=== PATIENT | female | born 1940 | race Caucasian/White ===

== ENCOUNTER 2018-04-16 06:29 | Day surgery (SDC) | payer MEDICARE, OTHER, SELFPAY ==
[2018-04-16] VITALS (9 sets, daily range): BP systolic 72–130; BP diastolic 47–76; PULSE 59–83; RESP 16–18; TEMP 35.7–36.4; O2SAT 92–96; BMI 35.6
--- NOTE | 2018-04-16 | IMM_PTH ---
PATIENT: KANE SIGALA LOC: EN U#:[id number] AGE/SX: 77/F ROOM: RE04/16/[address]: Dr. Robb Trimble MD : 1940 BED: DIS: 04/16/2018 SPEC #: [id number] RECD: 04/17/18 11:46 STATUS: DERECK RETerese #: [id number] MONIQUE: 04/16/18 00:[address]: Robb Trimble DEPT: IMMUNOHISTOCHEMISTRY RECD BY: Jenny Vaz ENTERED: 04/17/18 11:46 SP TYPE: IMMUNO OTHR DR: Dr. Oliverio Spencer MD Tissues: A - Gastric mucous membrane B - POLYP Procedures: H Pylori (initial) PHYSICIAN & INSTITUTION [place] [address] SPECIMEN INFORMATION: Tissue Source: A. Biopsy gastric antrum, B. Gastric polyp Clinical Info: Hem positive stool Specimen Number: [id number] A, B CPT code: 99057o1 METHODOLOGY: Deparaffinized sections of prefer/formalin-fixed tissue or PAP/DQ stained slides are incubated with monoclonal/polyclonal antibodies/oligonucleotide probes. Localization is made via biotin free immunoperoxidase method. Appropriate controls are performed and reacted as expected. Results on target cell population are indicated in the following table: RESULTS: ANTIBODY / CLONE RESULT Block A H Pylori (polyclonal) negative Block B H Pylori (polyclonal) negative These tests were developed and their performance characteristics determined by [facility]. They may not have been cleared or approved by the U.S. Food and Drug Administration. The FDA has determined that such clearance or approval is not necessary. INTERPRETATION: A. Biopsy gastric antrum: Negative for Helicobacter pylori organisms. B. Gastric polyp: Negative for Helicobacter pylori organisms. SJ:arabella 04/18/18
--- NOTE | 2018-04-16 08:19 | EGD_PTH ---
PATIENT: KANE SIGALA LOC: EN U#:[id number] AGE/SX: 77/F ROOM: RE04/16/[address]: Dr. Robb Trimble MD : 1940 BED: DIS: 04/16/2018 SPEC #: [id number] RECD: 04/16/18 09:35 STATUS: DERECK DUNG #: [id number] MONIQUE: 04/16/18 08:[address]: Robb Trimble DEPT: SURGICAL PATHOLOGY RECD BY: Monroe Gonsalez ENTERED: 04/16/18 11:07 SP TYPE: EGD BIOPSY CHICHO DR: Dr. Oliverio Spencer MD Tissues: A - Gastric mucous membrane B - Gastric mucous membrane C - Esophageal mucous membrane Procedures: Surgery Specimen Level IV HEADER OPERATION: EGD with biopsy PRE-OP DIAGNOSIS: Heme positive stool TISSUE SUBMITTED: A. Biopsy gastric antrum, B. Gastric polyp, C. Distal esophagus biopsy MICROSCOPIC DIAGNOSIS A. Gastric antrum, biopsy: Mild gastritis. B. Gastric polyp, biopsy: Mild gastritis. C. Distal esophagus, biopsy Fragments of squamous epithelium with mild chronic inflammation. SJ:silvia 04/17/18 COMMENT A. The results of immunohistochemistry for Helicobacter pylori will be reported separately ([id number]) B. The results of immunohistochemistry for Helicobacter pylori will be reported separately ([id number]) MICROSCOPIC DESCRIPTION Slides are reviewed. A. The specimen shows fragments of gastric mucosa with chronic inflammatory cell infiltrates in the lamina propria consisting of lymphocytes and plasma cells, consistent with mild chronic gastritis. B. The specimen shows fragments of gastric mucosa with chronic inflammatory cell infiltrates in the lamina propria consisting of lymphocytes and plasma cells, consistent with mild chronic gastritis. Obvious changes consistent with polyp are not seen. GROSS DESCRIPTION A. Received in fixative is one container labeled with the patient's name and designated gastric antrum. The specimen consists of one fragment of tissue measuring 0.5 x 0.3 x 0.2. The specimen is totally submitted in one cassette. B. Received in fixative is one container labeled with the patient's name and designated gastric polyp. The specimen consists of one fragment of tissue measuring 0.5 x 0.2 x 0.2. The specimen is totally submitted in one cassette. C. Received in fixative is one container labeled with the patient's name and designated distal esophagus. The specimen consists of multiple minute fragments of tissue measuring in aggregate 0.5 x 0.2 x 0.1. The specimen is totally submitted in one cassette. RY:silvia 04/15/18 TC: 3 CPT: 01372 x3
--- NOTE | 2018-04-16 08:56 | OP.PCM_ITS ---
Problem List (1) Guaiac + stool Status: Acute Report of Operation Date of Procedure: 04/16/18 Pre-Operative Diagnosis: Hemoccult positive stool Post-Operative Diagnosis: Large hiatal hernia. Mild antral gastritis. Multiple gastric polyps. Severe sigmoid and descending diverticulosis. Elongated lax colon. Grade 2 internal hemorrhoids Surgery/Procedure Performed:: Esophagogastroduodenoscopy with biopsies. Colonoscopy Description of Surgical Findings:: Timeout and informed consent was obtained. 77-year-old female was taken to the endoscopy suite. Her oral ulcers anesthetized with Topex. She was placed in a left lateral decubitus position. Throughout both the upper and lower endoscopy she received a total of 100 mg Demerol and 4 mg of Versed is intravenous sedation. Upper gastric was inserted into the esophageal inlet. Proximal mid esophagus not remarkable. A moderately large 6 cm hiatal hernia encountered. Widely patent the EG junction. Scope was advanced in the stomach and multiple too numerous to count gastric polyps were identified. There is mild antral erythema. The scope was advanced through the pylorus versus the second portion of the duodenum were inspected this was not remarkable. The scope was withdrawn back into the stomach antral biopsy was obtained. The scope was retroflexed there were multiple polyps noted. A moderately large hiatal hernia noted photographs obtained. This appeared to be a sliding hernia. 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 There was no evidence of any active bleeding. Excess fluid and air was aspirated free. The procedure scope was withdrawn to the distal esophagus. Distal esophageal biopsy was obtained. Excess fluid and air was aspirated free the procedure was completed with the patient tolerating it well. The patient was kept in a left lateral decubitus position. Digital rectal exam performed. Grade 2 to grade 3 internal hemorrhoids though without active bleeding. The scope was inserted and immediately extensive sigmoid diverticulosis with extraordinarily tortuous sigmoid was encountered. The scope was tediously and slowly advanced through the sigmoid and descending colon into the transverse colon. The patient was then placed supine. The scope was advanced to the ascending colon. Patient was then again placed in the lateral decubitus position and the scope was advanced. The cecum and ileocecal valve area could be inspected. I cannot absolutely help the scope within the cecum but I felt that I had good visualization. Bowel prep was adequate there was still some liquid and solid stool scattered throughout the colon. The ascending colon was now well inspected. The scope was carefully withdrawn from the ascending transverse descending and sigmoid colon. Scattered minimal pancolonic diverticulosis was identified with extensive diverticular disease of the descending and sigmoid colon. I did not see any mass lesions. Possibly a slight amount of edema of the sigmoid but very minimal. Excess fluid and air was aspirated free after the rectum was carefully inspected and the procedure was completed. Impression Hiatal hernia. Antral gastritis. Multiple gastric polyps. Likely source of Hemoccult positive stool. Extraordinarily long lax colon. Extensive sigmoid and descending diverticulosis. Grade 2 to grade 3 internal hemorrhoids. Previous colonoscopy was April 2012. Next screening colonoscopy recommended in 10 years The patient will be notified of pathology results as they become available. I will await H. pylori. The patient is already on omeprazole therapy. CC: Dr. Oliverio Spencer Medications were given at 0814. The upper scope started 0816. That procedure was completed at 0821. The lower endoscopy was started at 0825. The cecum was reached at 0841. The procedure was completed at 0847. Robb Trimble M.D., F.A.C.S. Type of Anesthesia:: IV Sedation
== END 2018-04-16 10:17 | disposition home or self-care (01) ==
LOC: EN 06:32 → AC 06:33
PROVIDERS: Family Provider Family Medicine; PCP Family Medicine; Visit Provider Surgery
PROC: 0DJD8ZZ Inspection of Lower Intestinal Tract, Via Natural or Artificial Opening Endoscopic (ICD-10-PCS; CPT 45378; principal; 2018-04-16 07:55)
DX: K44.9 Diaphragmatic hernia without obstruction or gangrene (principal); K29.50 Unspecified chronic gastritis without bleeding; K31.7 Polyp of stomach and duodenum; K57.90 Diverticulosis of intestine, part unspecified, without perforation or abscess without bleeding; K64.8 Other hemorrhoids; Q43.8 Other specified congenital malformations of intestine; Z79.82 Long term (current) use of aspirin; I10 Essential (primary) hypertension; F32.9 Major depressive disorder, single episode, unspecified; F41.9 Anxiety disorder, unspecified
CPT/HCPCS: 43239; 45378; 88305; 88342; 99152; 99153; J7120

== ENCOUNTER → 2018-05-02 14:22 | Outpatient (CLI) | payer MEDICARE, OTHER, SELFPAY ==
--- NOTE | 2018-05-02 | LES_PTH ---
PATIENT: KANE SIGALA LOC: MARY U#:[id number] AGE/SX: 85/F ROOM: RE05/02/[address]: Dr. Sergio Reynolds MD : 1940 BED: DIS: SPEC #: [id number] RECD: 05/02/18 14:22 STATUS: DERECK DUNG #: [id number] MONIQUE: 05/02/18 00:[address]: Sergio Reynolds DEPT: SURGICAL PATHOLOGY RECD BY: Devan Romero ENTERED: 05/03/18 08:52 SP TYPE: Lesion OTHR DR: Dr. Oliverio Spencer MD Tissues: Skin of eyelid, NOS Procedures: Surgery Specimen Level IV HEADER OPERATION: Excision left eyelid lesion PRE-OP DIAGNOSIS: Possible papilloma TISSUE SUBMITTED: Left lower eyelid lesion MICROSCOPIC DIAGNOSIS Left lower eyelid lesion, biopsy: Fragment of skin with focal hyperkeratosis and minimal perivascular dermal chronic inflammation. No evidence of malignancy. AM:cherelle 05/07/18 COMMENT Case has been reviewed in consultation with Dr. Bernal who concurs with the above diagnosis. IDC:MATT MICROSCOPIC DESCRIPTION Slides are reviewed. GROSS DESCRIPTION Received in fixative is one container labeled with the patient's name and designated left lower lid. The specimen consists of a piece of guthrie soft tissue measuring 0.3 x 0.2 x 0.1 cm. The specimen is totally submitted in one cassette. / MATT:cherelle 05/03/18 TC:5 CPT: 61412
== END ==
PROVIDERS: Family Provider Family Medicine; PCP Family Medicine; Visit Provider Ophthalmology
DX: H02.9 Unspecified disorder of eyelid (principal)
CPT/HCPCS: 88305

== ENCOUNTER → 2019-03-29 10:39 | Outpatient (CLI) | payer MEDICARE, OTHER, SELFPAY ==
--- NOTE | 2019-03-29 | BRBX_PTH ---
PATIENT: KANE SIGALA LOC: [facility] U#:[id number] AGE/SX: 85/F ROOM: RE03/29/[address]: Dr. Robb Trimble MD : 1940 BED: DIS: SPEC #: [id number] RECD: 03/29/19 10:35 STATUS: DERECK DUNG #: [id number] MONIQUE: 03/29/19 00:[address]: Robb Trimble DEPT: SURGICAL PATHOLOGY RECD BY: Devan Romero ENTERED: 03/31/19 08:47 SP TYPE: BREAST BX OTHR DR: Dr. 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 See comment. MATT:cherelle 04/01/19 COMMENT Immunohistochemistry ([id number]) supports the above diagnosis. ER/AZ/Tsv0cuo studies are being performed on sections of tumor and the results from this study will be reported separately ([id number]). 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 Case has been reviewed in consultation with Dr. Severino who concurs with the above diagnosis. IDC:AM MICROSCOPIC DESCRIPTION Slides are reviewed. GROSS DESCRIPTION Received in fixative is one container labeled with the patient's name and designated left breast. The specimen consists of multiple elongated fragments of guthrie-yellow fibroadipose tissue that in aggregate measure 2 x 0.3 x 0.1 cm. The entire specimen is submitted in one cassette. / MATT:cherelle 03/31/19 TC:0 CPT: 11159
--- NOTE | 2019-03-29 | IMM_PTH ---
PATIENT: KANE SIGALA LOC: LAB U#:[id number] AGE/SX: 85/F ROOM: RE03/29/[address]: Dr. Robb Trimble MD : 1940 BED: DIS: SPEC #: [id number] RECD: 04/01/19 11:15 STATUS: DERECK REQ #: [id number] MONIQUE: 03/29/19 00:[address]: Robb Trimbel DEPT: IMMUNOHISTOCHEMISTRY RECD BY: Danielle Montiel ENTERED: 04/01/19 11:16 SP TYPE: IMMUNO OTHR DR: Dr. Oliverio Spencer MD Tissues: Left breast, NOS Procedures: CALPONIN-1 (add) CK5-6 (add) CK8 (add) E-CAD (add) HER2 TSERING (add) KI-67 (add) P53 (add) DE (add) IN SITU HYBRIDIZATION P40 (add) ER (initial) PHYSICIAN & INSTITUTION [address] [address] SPECIMEN INFORMATION: Tissue Source: Left breast, biopsy Clinical Info: Abnormal breast ultrasound Specimen Number: [id number] CPT code: 62091, 16611 x6, 72481 x3 METHODOLOGY: Deparaffinized sections of prefer/formalin-fixed tissue or PAP/DQ stained slides are incubated with monoclonal/polyclonal antibodies/oligonucleotide probes. Localization is made via biotin free immunoperoxidase method. Appropriate controls are performed and reacted as expected. Results on target cell population are indicated in the following table: RESULTS: ANTIBODY / CLONE RESULT E-Cad (ECH-6) positive, focal * CK8 (21uphpG69) positive CK5-6 (D5 & 1684) negative Ki-67 (30-9) positive, moderate P53 (DO-7) positive, rare cells, weak P40 (BC28) negative (high background staining) Calponin-1 (YF685W) negative MORPHOMETRIC ANALYSIS ER (clone 6F11) >95%, strong DE (clone 16/1E2) variable, 0 to >95% Her-2Neu (clone CB11) 1-2+ *?Invasive lobular carcinoma area is negative ?Invasive ductal carcinoma area is up to 95% positive, invasive lobular carcinoma area is 0% The prognostic test for HER2 is performed on formalin-fixed paraffin embedded tissue. A 3+ (positive) staining pattern is defined as intense, homogeneous, complete, circumferential membranous staining in >10% of contiguous tumor cells. A similar weak (2+) staining pattern is interpreted as equivocal. PRICILLA follow-up testing is recommended for all equivocal cases. Positivity/negativity for ER/DE is reported if > or < 1% of the tumor cells are immuno- reactive, respectively. The ASCO/CAP criteria is used for scoring. Reference: Journal of Clinical Oncology, 2013; 31:7983-5355 & 2010; 16:5613-6891. Duration of fixation: 34.5 Hrs; Sample Adequate: Yes. These assays have not been validated on decalcified tissues. Results should be interpreted with caution given the likelihood of false negativity on decalcified specimens. These tests were developed and their performance characteristics determined by [facility]. They may not have been cleared or approved by the U.S. Food and Drug Administration. The FDA has determined that such clearance or approval is not necessary. 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 Positive for estrogen receptors (favorable prognostic indicator). Positive for progesterone receptors (favorable prognostic indicator). [place] also see results above. Equivocal for overexpression of OYU6pem. This case has been reviewed in consultation with Dr. Severino who concurs with the above diagnosis. SJ:cherelle 04/02/19 ADDENDUM ADDENDUM ADDENDUM ADDENDUM ADDENDUM ADDENDUM ADDENDUM ADDENDUM ADDENDUM ADDENDUM ADDENDUM ADDENDUM ADDENDUM ADDENDUM ADDENDUM ADDENDUM ADDENDUM ADDENDUM ADDENDUM ADDENDUM ADDENDUM ADDENDUM ADDENDUM 04/03/2019 11:00 ADDENDUM 04/03/2019 11:00 ADDENDUM 04/03/2019 11:00 ADDENDUM 04/03/2019 11:00 ADDENDUM 04/03/2019 11:00 IN SITU HYBRIDIZATION (PRICILLA) FOR HER2 Interpretation: Negative / Not Amplified HER2 : CEP-17 Ratio: 1.1 Average HER2 Signal: 2.15 Average CEP-17 Signal: 1.9 Number of Tumor Cells Scanned: 50 Interpretative Information: The INFORM HER2 Dual PRICILLA DNA Probe Cocktail assay is performed on formalin-fixed paraffin embedded tissue and determines HER2 gene status by detecting HER2 copies via silver in situ hybridization (SISH) and Chromosome 17 copies via chromogenic red in situ hybridization on tumor cells. A minimum of 20 cells representing > 10% of contiguous and homogeneous invasive tumor cells were analyzed. HER2 gene status is classified as Non-amplified (HER2/Chr17 ratio < 2.0) or Amplified (HER2/Chr17 ratio greater than or equal to 2.0). If the resulting HER2/Chr17 ratio falls within 1.8 - 2.2 (Borderline), retesting by FISH is recommended. Reference: Praveen AC, Clarissa SEYMOUR, Jaziel MURRY, et al: Recommendations for Human Epidermal Growth Factor Receptor 2 Testing in Breast Cancer: [place] [employer] On[employer] / [employer] [place] [employer] Clinical Practice Guideline Update. J Clin Oncol 31:5908-0209, 2013. SJ:cherelle 04/03/19
[2019-03-29 09:09] VITALS: BMI 35.9
== END ==
PROVIDERS: Family Provider Family Medicine; PCP Family Medicine; Referring Provider Surgery; Visit Provider Surgery
DX: C50.912 Malignant neoplasm of unspecified site of left female breast (principal)
CPT/HCPCS: 88305; 88341; 88342; 88368

== ENCOUNTER → 2019-04-25 09:52 | Outpatient (CLI) | payer MEDICARE, OTHER, SELFPAY ==
[2019-04-07 12:26] VITALS: BMI 37.9
[2019-04-17 09:59] VITALS: BMI 37.9
--- NOTE | 2019-04-26 07:02 | PFT ---
INTRODUCTION: The patient is a 79-year-old female that presents for pulmonary function studies secondary to a diagnosis of dyspnea. Respiratory therapy reports good patient effort. Bronchodilators were used during testing. INTERPRETATION: Forced expiration spirometry demonstrates the presence of a moderate large airways obstructive ventilatory defect. There was no significant response to aerosolized bronchodilators. Spirograms are of good quality and do not plateau indicating slow emptying of the lungs. Body plethysmography was performed and reveals lung volumes to be within normal limits. Diffusing capacity by single breath CO is reduced at 53% of predicted. IMPRESSION: Irreversible moderate large airways obstructive ventilatory defect with symmetric reduction in diffusing capacity.
== END ==
PROVIDERS: Family Provider Family Medicine; PCP Family Medicine; Referring Provider Internal Medicine Critical Care Medicine; Visit Provider Internal Medicine Critical Care Medicine
DX: R06.09 Other forms of dyspnea (principal)
CPT/HCPCS: 94060; 94726; 94729

== ENCOUNTER 2019-05-15 14:45 | Observation (INO) | payer MEDICARE, OTHER, SELFPAY ==
[2019-03-29 09:09] VITALS: BMI 35.9
[2019-04-17 09:59] VITALS: BMI 37.9
--- NOTE | 2019-04-17 10:32 | HP_ITS ---
Intake Vital Signs 04/17/19 Body Mass Index (BMI) 37.9 Intake Visit Reasons: f/u L breast bx 03/29/19 Chief Complaint: abn mammo, hx breast CA International Tax Manager Required: No Is patient in pain?: No Allergies No Known Allergies Allergy (Verified 04/17/19 09:59) Medications Aspirin E.C. [Ecotrin] 81 mg PO DAILY@0800 01/25/17 [History Confirmed 04/17/19] Cholecalciferol (Vitamin D3) [Vitamin D3] 2,000 unit PO DAILY 01/25/17 [History Confirmed 04/17/19] Metoprolol Tartrate [Lopressor (Beta Yuli)] 25 mg PO DAILY 01/25/17 [History Confirmed 04/17/19] Multivit-Min/Iron/Folic/Lutein [Centrum Silver Women Tablet] 1 ea PO DAILY 01/25/17 [History Confirmed 04/17/19] Venlafaxine XR [Effexor Xr] 75 mg PO DAILY 01/25/17 [History Confirmed 04/17/19] lansoprazole 30 mg capsule,delayed release 30 mg PO DAILY 03/29/19 [History Confirmed 04/17/19] doxycycline monohydrate 100 mg tablet PO 10 Days #20 tab 04/07/19 [History Confirmed 04/17/19] prednisone 20 mg tablet 20 mg PO 5 Days tab 04/07/19 [History Confirmed 04/17/19] [facility] Medical History Abnormal mammogram of left breast (Acute) Guaiac + stool (Acute) Asthma (Acute) Bladder cancer (Acute) CAD (coronary artery disease) (Acute) Depression (Acute) GERD (gastroesophageal reflux disease) (Acute) Hemorrhoids (Acute) History of breast cancer (Acute ~1996) Hypercholesteremia (Acute) Myocardial infarction (Acute) Osteoarthritis (Acute) Status post amputation of finger (Acute) HTN (hypertension) (Chronic) Surgical History S/P angioplasty (Acute) S/P colonoscopy (Acute) S/P hemorrhoidectomy (Acute) Status post left breast lumpectomy (Acute ~1996) Family History Mother Breast cancer CAD (coronary artery disease) Hypertension Diabetes Heart disease Father Hypertension Social History (Updated 04/17/19 @ 10:32 by Robb Trimble MD) Smoking Status: Former smoker Tobacco: How many years used: 42 how long ago did patient quit smokin HPI HPI HPI: KANE SIGALA, is a 79 F who presents to the office today for HPI HPI Surgical H&P: Yes HPI: KANE SIGALA, is a 79 F who presents to the office today for ongoing surgical consultation regarding left breast cancer. In my absence the patient has been seen in consultation by Dr. Chip Nathan. The 1.3 x 0.8 x 0.6 cm irregular left breast density at 3:00 +4 cm noted. The pathology demonstrated invasive carcinoma with ductal and lobular features. Nuclear grade 2. Estrogen receptors greater than 95%. Progesterone receptor variable at 0 to 95%. HER- 2/kristin was 1-2+. 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 She is no longer a candidate for additional radiation treatment to the left breast. On the patient's initial consultation evaluation and left breast biopsy that I performed for her on March 29, 2019 she immediately made comment that she wanted to proceed with therapeutic mastectomy on the left and prophylactic mastectomy on the right. She had been a long-term cigarette smoker. At my request she has been seen by Dr. Matt Ca. He is anticipating pulmonary function test be done on April 26, 2019. Tentatively her definitive surgery is scheduled for April 29, 2019. The patient presents with her daughter Evelia today for further discussion. MR#:[id number]:[id number] Name: KANE SIGALA #:[id number] : 1940 Provider:Robb Trimble MD Age/Sex: 78/F Location:[facility] Status:Signed Intake Vital Signs 03/29/19 Height 5 ft 2 in 03/29/19 Weight: 196 lb 2 oz 03/29/19 Body Mass Index (BMI) 35.9 03/29/19 Blood Pressure 151/98 H 03/29/19 Blood Pressure Location Rt brachial 03/29/19 Blood Pressure Position Sitting 03/29/19 Respiratory Rate 20 H 03/29/19 Pulse Rate 96 03/29/19 Pulse Ox 96 Intake Visit Reasons: hx breast CA, new spot Chief Complaint: abn mammo, hx breast CA International Tax Manager Required: No Is patient in pain?: No Allergies No Known Allergies Allergy (Verified 03/29/19 08:58) Medications Aspirin E.C. [Ecotrin] 81 mg PO DAILY@0800 01/25/17 [History Confirmed 03/29/19] Cholecalciferol (Vitamin D3) [Vitamin D3] 2,000 unit PO DAILY 01/25/17 [History Confirmed 03/29/19] Metoprolol Tartrate [Lopressor (Beta Yuli)] 25 mg PO DAILY 01/25/17 [History Confirmed 03/29/19] Multivit-Min/Iron/Folic/Lutein [Centrum Silver Women Tablet] 1 ea PO DAILY 01/25/17 [History Confirmed 03/29/19] Venlafaxine XR [Effexor Xr] 75 mg PO DAILY 01/25/17 [History Confirmed 03/29/19] lansoprazole 30 mg capsule,delayed release 30 mg PO DAILY 03/29/19 [History Confirmed 03/29/19] Is last menstrual period known: No Post menopausal: Yes Patient : No PFSH Medical History Guaiac + stool (Acute) Asthma (Acute) Bladder cancer (Acute) CAD (coronary artery disease) (Acute) Depression (Acute) GERD (gastroesophageal reflux disease) (Acute) Hemorrhoids (Acute) History of breast cancer (Acute ~1996) Hypercholesteremia (Acute) Myocardial infarction (Acute) Osteoarthritis (Acute) Status post amputation of finger (Acute) HTN (hypertension) (Chronic) Surgical History S/P angioplasty (Acute) S/P colonoscopy (Acute) S/P hemorrhoidectomy (Acute) Status post left breast lumpectomy (Acute ~1996) Family History Mother Breast cancer CAD (coronary artery disease) Hypertension Diabetes Heart disease Father Hypertension Social History Smoking Status: Former smoker HPI HPI HPI: KANE SIGALA, is a 78 F who presents to the office today for surgical consultation regarding an abnormal mammogram. The patient is referred by her primary care physician Dr. Oliverio Spencer and a written copy of my surgical consult and recommendations will be returned to him. 78-year-old female. A0. Menarche at age 13. First child was born when she was 24. She did not breast-feed. In 1996 I assisted her with a medial left breast lumpectomy for DCIS. She did get post intervention radiation treatment. She was not prescribed hormonal agent. Her family history is notable for her mother having developed invasive breast cancer when she was in her late 70s. The patient has not been on any estrogen medication. The patient has been a long-term cigarette smoker. She finally quit but has problems with chronic bronchitis and likely COPD. She has not been seen by a clerical assigner. She does become dyspneic on exertion had and has trouble going up a flight of stairs. Additionally she notes that 1996 she had a myocardial infarction. She denies any current chest pain. She otherwise believes that her health is been generally stable. At the [facility] on March 24, 2019 she had screening mammography. There was felt to be a focal asymmetry in the left breast that was indeterminate and additional views were recommended. This is in the left breast lower outer aspect. The right breast was not felt to be remarkable. On March 26, 2019 she had diagnostic left breast mammography. There is an irregular area of architectural distortion with pleomorphic calcifications left breast 3:00 middle depth. On ultrasound there was felt to be a 1.3 x 0.8 x 0.6 cm irregular mass with angulated margins 3 o'clock position +4 cm. Suspicious for malignancy. Biopsy is recommended. HPI HPI HPI: KANE SIGALA, is a 78 F who presents to the office today for Exam Const General: cooperative, comfortable, no acute distress Nutritional Appearance: obese Orientation: alert, awake [facility] Head: normal to inspection Chest Other: Increased anterior posterior diameter Right breast: No focal mass. No nipple discharge. No axillary or clavicular adenopathy Left breast: General volume loss compared to the right. Well-healed circumareolar incision medially, nondescript fibrous change outer mid left breast no distortion. No axillary or clavicular adenopathy Resp Other: Poor respiratory excursion with deep breath. Clear. No wheezing Cardio Rate: regular rate Rhythm: regular rhythm GI Inspection: obesity Palpation: soft, no hepatosplenomegaly Auscultation: normal bowel sounds Musc Cervical Spine: normal cervical lordosis Neuro Cognition: normal cognition Extrem General: no calf tenderness bilaterally Psych Affect: normal affect Office Procedures Biopsy Provider Documentation Ultrasound-guided needle core biopsy left breast 3 o'clock position +4 cm Timeout and informed consent was obtained. 78-year-old female was taken to procedure room placed on the table. A left shoulder roll was placed. The left breast was prepped with Betadine. Ultrasound was performed. At the 3 o'clock position left breast of the irregular density was rapidly identified. Under ultrasound guidance 1% lidocaine mixed 50-50 with 0.5% Marcaine was used as a local anesthetic. A total of 8 cc was used. A small stab incision was created. A 14-gauge Monopty needle was advanced to prefire depth. Pre-and post fire films were obtained. 3 separate cores were obtained. The specimens were immediately submitted in formalin. A marking clip was left in position and ended up chest on the medial aspect of the lesion. Pressure was held for hemostasis. Steri-Strip Telfa OpSite dressing applied. She was given activity and wound care instructions. Blood loss was minimal no apparent complication. Robb Trimble M.D., F.A.C.S. Alert [facility] Yes Biopsy Breast Biopsy: [id number] US Guidance Procedure Time Out Time Out Informed consent given: Yes Consent signed: Yes Time out checklist: patient, procedure, site marked/identified, positioning of patient, supplies available, allergies confirmed, team agrees on procedure Time out staff in room: Yes Time out verified: Yes Time out date: 03/29/19 Time out time: 09:12 Assessment & Plan Problems 1. Abnormal mammogram of left breast R92.8 Plan 78-year-old female. I have personally reviewed her mammogram and ultrasound imaging. She has a highly suspicious 1.3 cm diameter irregular lesion left breast 3 o'clock position +4 cm. We discussed treatment options and she elected to proceed with ultrasound-guided needle core biopsy of this area. As noted above in the procedure note we pursued. I have confided in the patient that I am highly suspicious that this is malignant. I briefly discussed treatment options however the patient was very quick to suggest that if this is left breast cancer that she will pursue a therapeutic left mastectomy and a prophylactic right mastectomy. I did discuss with her the technique of nuclear tracer and blue dye sentinel lymph node biopsy which we would pursue on the left. She is aware that I will be out of town for 2 weeks. I have advised her that we involve hematology oncology in the interim. They will help with discussing with her the pathology and treatment plans. The patient's mother in her late 70s also developed breast cancer. The patient has a daughter and a granddaughter and would like to pursue questions regarding possible genetic testing. Additionally during her interview and exam today is evident that she does have a clinically significant COPD from long-term cigarette smoking. She states that she has not seen a clerical assigner nor is she on routine inhalers. I have suggested to her that if she requests the left mastectomy with sentinel lymph node biopsy in the prophylactic right mastectomy that that will require general anesthesia and approximately 3-1/2 hours of operating. I am requesting that we obtain pulmonology consultation to maximize her respiratory function preoperatively. She has had an opportunity to ask and have questions answered. I very much appreciate the ongoing opportunity of assisting with her surgical care. Her daughter Evelia is currently out of town but will return and likely will have additional input questions. CC: Dr. Oliverio Trimble M.D., F.A.C.S. Orders Orders: Biopsy Today R92.8 Medications Discontinued: atorvastatin Discontinued Reason: Pt no longer taking 40 mg PO QHS Coding Level of Care Code Comprehensive,moderate Diagnoses Abnormal mammogram of left breast R92.8 Additional Codes Biopsy - Breast Biopsy: 65906 US Guidance (47735) 03/29/19 1004<Electronically signed by Robb Trimble MD> Date ROS General General: Yes weight change and breast cancer; no appetite, fatigue, colon cancer or weakness HEENT HEENT: No difficulty swallowing, eye injury, eye surgery, swollen glands or hoarseness Endo Endocrine: No thyroid disease, diabetes mellitus, thyroid cancer, Hair loss, heat intolerance or cold intolerance Cardio Cardiovascular: Yes heart disease, high blood pressure and heart attack; no murmur, pacemaker, atrial fibrillation, heart stent, palpitations, shortness of breat with exertion or chest pain Resp Respiratory: Yes shortness of breath, No sleep apnea, No cough, No COPD, Yes asthma, No emphysema, No wheezing Gastro Gastrointestinal: No abdominal pain, No nausea or vomiting, No diarrhea, Yes constipation, Yes blood in stool, Yes acid reflux, Yes hemorrhoids, No ulcers, No gallbladder problem, No black,tarry stools Jared Hematologic: No blood thinners, No blood disorders, No bleeding, No anemia, No blood clots Neuro Neurologic: No weakness Exam Cardio Heart Sounds: no murmurs Assessment & Plan Problems 1. Malignant neoplasm of upper-outer quadrant of left breast in female, estrogen receptor positive C50.412; Z17.0 Plan I have had an extensive discussion with the patient today and in a [id number] 20-minute consultative appointment. I am recommending the patient a therapeutic left total mastectomy with nuclear tracer and blue dye left axillary sentinel lymph node biopsy. She is aware of the technique, benefit, risks, alternatives. We had an extensive discussion regarding a prophylactic right mastectomy. We discussed her pulmonary disease and increased operative time and increased operative risk. She has had an opportunity to ask and have questions answered. She will further consider her treatment options and recontact us as to whether she wants to proceed with a prophylactic right mastectomy. This decision may be impacted by Dr. aMtt Ca's further pulmonary evaluation. The patient is scheduled and we will proceed as noted. The patient will notify me pre-operative date with her final decision as to how she would like to proceed. I very much appreciate the kind opportunity to continue to assist with her surgical care CC: Dr. Oliverio Spencer and Dr. Matt Ca and Dr. Chip Trimble M.D., F.A.C.S. Coding Level of Care Code Off vis,est,level 3 Diagnoses Malignant neoplasm of upper-outer quadrant of left breast in female, estrogen receptor positive C50.412; Z17.0 ??Breast location: upper outer quadrant of breast ??Estrogen receptor status: positive ??Patient sex: female ??Laterality: left 04/17/19 1032 <Electronically signed by Robb ortez MD> Date _ Robb Trimble MD The patient was ill at her previous scheduled surgery date. There has been extensive discussion regarding the treatment plan offered. The patient selects a left mastectomy with left axillary nuclear tracer and blue dye sentinel lymph node biopsy. She again is requesting a prophylactic right total mastectomy. She is extensively aware of the technique, benefits, risks, alternatives. She is scheduled and we will proceed as noted. She has recovered from her episode of acute diarrhea Robb Trimble M.D., F.A.C.S.
--- NOTE | 2019-04-25 10:59 | EKG12_ITS ---
Test Reason : PREOP Blood Pressure : / mmHG Vent. Rate : 074 BPM Atrial Rate : 074 BPM P-R Int : 146 ms QRS Dur : 082 ms QT Int : 378 ms P-R-T Axes : 041 024 051 degrees QTc Int : 419 ms Normal sinus rhythm Nonspecific T wave abnormality Abnormal ECG Confirmed by CARMEN MARIE, JEVON ([id number]), editor department DORIE ORTEGA ([id number]) on 04/28/2019 1:41:00 PM Referred By: Robb Trimble Confirmed By:JEVON MORALES MD
--- NOTE | 2019-04-25 11:11 | RAD_ITS ---
STUDY: X-RAY CHEST REASON FOR EXAM: Female, 79 years old. Shortness of breath. Preoperative evaluation. TECHNIQUE: PA and lateral views of the chest. COMPARISON: None. FINDINGS: Hyperinflation. Increased interstitial markings at the lung bases suggestive of a linear atelectasis and/or scarring. There is no demonstrated pleural abnormality. Normal size heart. Normal mediastinum and mireille. Normal visualized pulmonary arteries. There is atherosclerotic calcification of the aortic arch with tortuosity. There are degenerative changes of the visualized thoracic spine. Normal visualized ribs, clavicles, and shoulders. There is no demonstrated abnormality of the visualized soft tissue structures of the upper abdomen. RAD/Chest PA and Lateral IMPRESSION: Hyperinflation. Increased linear markings at the lung bases suggestive of linear atelectasis and/or scarring. Electronically Signed: Newton Crooks, at 11:50 EDT , Service support ,
[2019-04-25 14:24] LABS: Hematocrit 44.8 % (37-47); Hemoglobin 14.3 g/dl (12.0-15.0); Mean Corp Hgb Conc 31.9 g/gl (32-36); Mean Corpuscular Hgb 26.8 pg (27.0-32.0); Mean Corpuscular Volume 83.9 fL (81-99); Platelet Count 228 K/mm3 (150-450); RBC Distribution Width CV 15.2 % (11.6-14.6); RBC Distribution Width SD 46.4 fl (35.1-43.9); Red Blood Count 5.34 M/mm3 (4.2-5.4); White Blood Count 6.2 K/mm3 (4.4-11.0)
[2019-04-25 14:29] LABS: Scan Indicated on CBC? Y/N NO
[2019-04-25 14:36] LABS: Anion Gap 7 (5-15); BUN 21 mg/dL (7-18); BUN/Creat Ratio 25.2 RATIO (10-20); Calcium,Total 8.9 mg/dL (8.5-10.1); Chloride 108 mmol/L (98-107); Creatinine, Serum 0.83 mg/dL (0.55-1.02); EST Glomerular Filtration Rate 71 mL/min (>60); Est Glom Filt Rate - Afr Amer 85 mL/min (>60); Glucose 96 mg/dL (74-106); Potassium 4.1 mmol/L (3.5-5.1); Sodium Level 142 mmol/L (136-145)
[2019-05-15] VITALS (12 sets, daily range): BP systolic 133–199; BP diastolic 70–88; PULSE 64–76; RESP 14–18; TEMP 36.3–37.1; O2SAT 93–98; BMI 37.4; BMI 37.5
--- NOTE | 2019-05-15 | AXNB_PTH ---
PATIENT: KANE SIGALA LOC: MS3 U#:[id number] AGE/SX: 79/F ROOM: MS314 RE05/15/[address]: Dr. Robb Trimble MD : 1940 BED: 1 DIS: 05/16/2019 SPEC #: [id number] RECD: 05/15/19 12:17 STATUS: DERECK DUNG #: [id number] MONIQUE: 05/15/19 00:[address]: Robb Trimble DEPT: SURGICAL PATHOLOGY RECD BY: Danielle Montiel ENTERED: 05/15/19 14:02 SP TYPE: AX NODE BX OTHR DR: Dr. Oliverio Spencer MD Tissues: A - Axillary lymph node, NOS B - Left breast, NOS C - Right breast, NOS Procedures: Frozen Section (charge) Frozen Section Add'l ([facility]) Surgery Specimen Level V Surgery Specimen Level HEADER OPERATION: Bilateral mastectomy, left sentinel lymph node biopsy PRE-OP DIAGNOSIS: Malignant neoplasm of upper outer quadrant of left breast, ER positive TISSUE SUBMITTED: A - Left axillary sentinel lymph node tissue, frozen section, B - Left beast mastectomy tissue, suture kendrick axillary tail, C - Right breast mastectomy tissue FROZEN SECTION DIAGNOSIS A. Left axillary sentinel lymph nodes, biopsy: Two out of two lymph nodes negative for carcinoma. AM:cherelle 05/15/19 MICROSCOPIC DIAGNOSIS A. Left axillary sentinel lymph nodes, biopsy: Two out of two lymph nodes, negative for metastatic carcinoma. See comment. B. 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 Four out of four lymph nodes, negative for metastatic carcinoma. C. Right breast, mastectomy: Fibroadenoma with focal adenosis. Nipple, no pathologic diagnosis. See comment. SJ: 05/19/19 INVASIVE BREAST CANCER SUMMARY: (Including specimen A & B) Specimen - total breast (including nipple and skin). Procedure - total mastectomy (including nipple and skin). Lymph node sampling - sentinel lymph node and axillary dissection. Specimen integrity - single intact specimen Specimen laterality - left Tumor site - upper outer quadrant Tumor size - 1.5 cm in diameter Tumor focality - single focus of invasive carcinoma Macroscopic and Microscopic extent of tumor: Skin - invasive carcinoma does not invade to the dermis or epidermis. Nipple - ductal carcinoma does not involve the nipple epidermis. Skeletal muscle - no skeletal muscle present. Ductal carcinoma in situ (DCIS) - no DCIS is present. Lobular carcinoma in situ - not identified. See comment. Histologic type of invasive carcinoma - invasive carcinoma with ductal and lobular features (mixed type carcinoma). Histologic Grade (Maria Luz grade): Glandular/tubular differentiation - score 3 Nuclear pleomorphism - score 3 Mitotic count - score 1 Overall grade - 2 (score of 7) Margins - Margins uninvolved by invasive carcinoma. The invasive carcinoma is 2 cm away from the closest posterior margin. Treatment effect: Response to presurgical (neoadjuvant) therapy - no known presurgical therapy. Lymph-Vascular invasion - not identified Dermal lymph-vascular invasion - not identified Lymph nodes: Number of sentinel lymph nodes examined - 2 Total number of lymph nodes examined (sentinel and nonsentinel) - 6 Number of lymph nodes with macrometastases, micrometastases and isolated tumor cells - 0 Method of evaluation of sentinel lymph nodes - H & E, multiple levels and IHC. Distant metastasis - not applicable Additional pathologic findings - fibroadenoma (0.5 cm in greatest dimension). Focal hyalinization, consistent with previous biopsy site. Ancillary studies - previously performed on section of tumor ([id number] / [id number]). ER - positive (>95%, strong) DE - positive ( variable, 0-95%) Her2 kristin - equivocal ( 1-2+) Her2 by dual PRICILLA - negative / not amplified Microcalcifications - present in non-neoplastic tissue. Clinical history - Please make reference to previous specimen ([id number]) left breast, core biopsy with diagnosis of invasive carcinoma with ductal and lobular features (mixed type carcinoma). PATHOLOGIC STAGE: pT1c pN0 Mx The above summary is in compliance with [employer] (CAP) Cancer Protocols Checklist and [place] Joint Committee on Cancer (AJCC), Staging Manual, 8th Ed. COMMENT A. The lymph nodes are negative for metastatic carcinoma on multiple H & E levels and immunohisto-chemical stains for cytokeratins ([id number]). B. Immunohistochemistry ([id number]) supports the diagnosis of invasive lobular carcinoma (block B7) C. The specimen predominantly consists of fatty benign breast tissue. 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 Case has been reviewed in consultation with Dr. Severino who concurs with the above diagnosis. IDC:AM MICROSCOPIC DESCRIPTION Slides are reviewed. GROSS DESCRIPTION A - Received fresh for frozen section diagnosis labeled with the patient's name is a specimen designated left axillary sentinel lymph node tissue. The specimen consists of a piece of adipose tissue containing two nodules measuring 4.5 x 3.5 x 1 cm. Two nodules consistent with lymph nodes are identified each measuring 1 cm in greatest dimension. The entire specimen is submitted for frozen section diagnosis in two cassettes as follows: 1 - one bisected lymph node, 2 - one lymph node. / AM:cherelle 05/15/19 B - Received in fixative is one container labeled with the patient's name and designated left breast mastectomy tissue. The specimen consists of a mastectomy specimen consisting of breast tissue with overlying skin ellipse and portion of axillary tail. The breast tissue measures 19 x 17 x 6 cm. The axillary tail measures 7 x 7 x 2 cm and overlying skin ellipse measures 14.5 x 6 cm. The nipple measures 0.7 cm in greatest dimension. Blue dye discoloration is noted on the skin surface. No skin lesion is identified. The axillary tail tissue is marked by a suture. The specimen is inked as follows: superior - blue, inferior - green, medial - red, lateral - orange and posterior - black. Sections reveal a guthrie, nodular mass in the outer portion of the breast tissue measuring 1.5 cm in diameter. This mass is 2 cm away from the closest posterior margin. Sections will be submitted after overnight fixation. / SJ:cherelle 05/15/19 Sections of the rest of the breast tissue reveal two focal indurated areas in the inferior central portion of the breast tissue each measuring 1 cm in greatest dimension. Sections of the axillary tail tissue reveal four nodules consistent with lymph nodes. The largest lymph node measures 1 cm in greatest dimension. Hat Cutter sections are submitted in 16 cassettes as follows: 1 - nipple, entire submitted, 2??perpendicular superior, inferior and posterior margins, 3 - perpendicular medial, lateral and skin including areola, 4-7 - tumor with surrounding, entirely submitted, 8-10 - one indurated area, entirely submitted, 11 - second indurated area, entirely submitted, 12 - sales representative education courses section from the other area, 13 - one bisected lymph node, 14 - one bisected lymph node, 15 - one bisected lymph node, 16??one lymph node. / MATT:cherelle 05/16/19 C - Received in fixative is one container labeled with the patient's name and designated right breast mastectomy tissue. The specimen consists of a mastectomy specimen consisting of breast tissue with overlying skin ellipse measuring 26 x 24 x 6 cm. The overlying skin ellipse measures 21 x 10 cm. The specimen is oriented by a suture at the left axillary tail. The specimen is inked as follows: superior - blue, inferior - green, medial - red, lateral - orange and posterior - black. Sections will be submitted after overnight fixation. / MATT:cherelle 05/15/19 Sections reveal a guthrie nodule in the outer portion of the breast measuring 1 cm in greatest dimension. Sections of this nodule reveal guthrie, solid cut surfaces. Rest of the breast reveals guthrie-yellow adipose cut surfaces with scant fibrous area. Hat Cutter sections are submitted in ten cassettes as follows: 1 - nipple, entirely submitted, 2-4 - medial portion of breast tissue, 5-7 - middle portion of breast tissue, 8-10 - lateral portion of breast tissue (8 contains the entire nodule). / MATT:cherelle 05/16/19 TC:0 CPT: 81442, 73793 x2, 06348, 8329
--- NOTE | 2019-05-15 | IMM_PTH ---
PATIENT: KANE SIGALA LOC: MS3 U#:[id number] AGE/SX: 79/F ROOM: MS314 RE05/15/[address]: Dr. Robb Trimble MD : 1940 BED: 1 DIS: 05/16/2019 SPEC #: [id number] RECD: 05/19/19 12:23 STATUS: SOULevi REQ #: [id number] MONIQUE: 05/15/19 00:[address]: Robb Trimble DEPT: IMMUNOHISTOCHEMISTRY RECD BY: Danielle Montiel ENTERED: 05/19/19 12:24 SP TYPE: IMMUNO OTHR DR: Dr. Oliverio Spencer MD Tissues: A - Axillary lymph node, NOS Procedures: CALPONIN-1 (add) CK7 (add) CK8 (add) E-CAD (add) Pankeratin (initial) Pankeratin (add) P40 (add) PHYSICIAN & INSTITUTION [place] [id number] SPECIMEN INFORMATION: Tissue Source: A - Left axillary sentinel lymph nodes, biopsy, B - Left breast mastectomy Clinical Info: Malignant neoplasm of upper outer quadrant left breast Specimen Number: [id number] A1, A2 & B CPT code: 82076 x2, 43393 x7 METHODOLOGY: Deparaffinized sections of prefer/formalin-fixed tissue or PAP/DQ stained slides are incubated with monoclonal/polyclonal antibodies/oligonucleotide probes. Localization is made via biotin free immunoperoxidase method. Appropriate controls are performed and reacted as expected. Results on target cell population are indicated in the following table: RESULTS: ANTIBODY / CLONE RESULT Block A1 AE1-3 (AE1/AE3/PCK26) negative CK7 (OV-TL12/30) negative Block A2 AE1-3 (AE1/AE3/PCK26) negative CK7 (OV-TL12/30) negative Block B CK7 (OV-TL12/30) positive, focal CK8 (52dinjL26) positive E-Cad (ECH-6) negative P40 (BC28) negative Calponin-1 (QK248W) negative These tests were developed and their performance characteristics determined by [facility]. They may not have been cleared or approved by the U.S. Food and Drug Administration. The FDA has determined that such clearance or approval is not necessary. INTERPRETATION: A. Left axillary sentinel lymph nodes, biopsy: Two out of two lump nodes, negative for metastatic carcinoma. B. Left breast mastectomy: Invasive lobular carcinoma (block B7).. SJ:arabella 05/20/19
--- NOTE | 2019-05-15 08:00 | NM_ITS ---
STUDY: INJECTION FOR SENTINEL NODES LEFT REASON FOR EXAM: Female, 79 years old. Breast cancer TECHNIQUE: A total of 1.1 mCi of technetium 99m sulfur colloid was injected in 4 quadrants around the left areola COMPARISON: None. FINDINGS: 4 separate injections for a total of 1.1 mCi of technetium 99m sulfur colloid subdermal injections were performed at the North South, East, and West positions around the areola. Patient tolerated the procedure well, and was sent to surgery for further evaluation and imaging NM/Lymph Node Injection Only IMPRESSION: Subdural sulfur colloid injections. Electronically Signed: Bartolo Falcon MD at 9:39 EDT , Service support ,
--- NOTE | 2019-05-15 11:04 | PCM.DC.BS ---
Discharge Diet: No Restrictions Discharge Activity: May Not Drive - for 2-3 days or while taking narcotic pain meds. May shower in (days): 6 Lifting Restrictions: 10 pounds for 1 week. Call your doctor if your incision/area has: Continuous Slow Oozing, Sudden Increased Bleeding Call your doctor if you observe: Fever of 101 or Higher Suture Line Care: Avoid Pulling/Pushing, Avoid Pinching/Bending Remove Dressing in (days):: 1 Additional Dressing/Incision Instructions:: Remove bulky dressing tomorrow. Cleanse the drain sites with Q-tips and peroxide and reapply dry gauze. Empty,measure and record the drain output Allergies/Adverse Reactions: Allergies No Known Allergies Allergy (Verified 04/22/19 11:51) Medications to take at Discharge Aspirin E.C. [Ecotrin] 81 mg PO DAILY@0800 01/25/17 Cholecalciferol (Vitamin D3) [Vitamin D3] 2,000 unit PO DAILY 01/25/17 Metoprolol Tartrate [Lopressor (Beta Yuli)] 25 mg PO BID 01/25/17 Multivit-Min/Iron/Folic/Lutein [Centrum Silver Women Tablet] 1 ea PO DAILY 01/25/17 Venlafaxine XR [Effexor Xr] 75 mg PO QHS 01/25/17 lansoprazole 30 mg capsule,delayed release 30 mg PO DAILY 03/29/19 Pravastatin Sodium 80 mg PO QHS 04/22/19 Orders to be completed after discharge: 12 Lead EKG [CVS] Time Frame: 04/22/19, Facility: [facility], Location: Cardiovascular Services Chest PA and Lateral [RAD] Time Frame: 04/22/19, Facility: [facility], Location: Radiology, [facility] Basic Metabolic Profile (BMP) Time Frame: 04/22/19, Facility: [facility], Location: Laboratory CBC-Complete Blood Cnt No Diff Time Frame: 04/22/19, Facility: [facility], Location: Laboratory Primary Care Physician: Oliverio Spencer MD [Primary Care Provider] - Please Follow Up With: Robb Trimble MD When: [phone] Office appt. on Sunday 05/20
[2019-05-15] MEDS: Methylene Blue 1% 100 MG/10 ML VIAL OPERA.SITE (11:28)
--- NOTE | 2019-05-15 15:00 | PCM.OPRPT ---
Problem List (1) Breast cancer, left Status: Acute Qualifiers: Breast location: upper outer quadrant of breast Estrogen receptor status: positive Patient sex: female Qualified Code(s): C50.412 - Malignant neoplasm of upper-outer quadrant of left female breast; Z17.0 - Estrogen receptor positive status [ER+] Report of Operation Date of Procedure: 05/15/19 Pre-Operative Diagnosis: Outer mid left breast invasive ductal carcinoma Post-Operative Diagnosis: Same Surgery/Procedure Performed:: Left total mastectomy with left axillary nuclear tracer and methylene blue dye sentinel lymph node biopsy. Prophylactic right mastectomy Description of Surgical Findings:: Timeout and informed consent was obtained. 79-year-old female taken down from placement table underwent general anesthesia. Bilateral arms were carefully wrapped with soft roll and placed at right angles of the table. The left breast was prepped with alcohol. 4 cc of methylene blue dye was injected retrogradely and lateral to the tumor. Massage was performed for 3 minutes. Then bilateral breasts were sterilely prepped and draped. A transverse elliptical incision was made at the left breast nipple areolar complex. Superior and inferior flaps were raised with electrocautery. Dissection was performed into the left axilla where blue dye tracking was used to identify a brilliant blue lymph node. Neoprobe confirmed that this area was abnormal. This tissue was removed. Neoprobe failed to demonstrate any residual abnormality greater than 10%. Palpation and visualization failed to reveal any residual finding. 2 sentinel nodes had been submitted in both by pathology negative. Having created both the superior and inferior flaps the breast tissue was taken with the pectoralis fascia off the pectoralis major muscle. The vast majority of the flap and mastectomy dissection was performed with electrocautery. Were needed hemostasis was obtained with electrocautery or 3-0 Vicryl sutures. Hemoclips were utilized as well. The tissue was dissected free then. A silk sutures placed in the axillary aspect of that specimen. The wound was irrigated with sterile water. Hemostasis was intact. A stab incision was made inferior to the wound and a 15 round hip hemo-duct drain was placed. A second stab wound was placed in a drain was placed to the axilla and shortened. Then the flaps were closed with multiple pleating stitches of 3-0 Vicryl to tack the skin flaps to the chest wall. The subdermal tissues were approximated with the same. Viable flaps were achieved. Skin closure was achieved. Steri-Strips Telfa bulky dry dressings applied. Attention was now obtained to the right breast. The right breast significantly larger than left. A transverse ellipse was again created. Again using electrocautery superior and inferior flaps are created. Tissue was taken off the pectoralis major muscle including the fascia. No axillary dissection was performed on the right as this was a total mastectomy prophylactically. Hemostasis was again achieved with electrocautery. A quite sizable right specimen was achieved. Again the flaps were secured to the chest wall with 3-0 Vicryl and the skin edges approximate the same. A single stab incision made on the right inferiorly and a 15 round hemo-duct drain was placed to the right chest wall flaps. All drains were secured skin with interrupted 3-0 nylon. The skin incision the right was also treated with Steri-Strips Telfa bulky dry dressings. Both skin flaps appeared to be nicely approximated with good approximation and viability. Sponge and instrument and needle counts were reported to surgically correct. Specimen includes left axillary sentinel lymph nodes x2. Left total mastectomy. Right total mastectomy. Drains 2 SIERRA drains on the left and one on the right Blood loss 100 cc She was taken to the recovery area in satisfactory condition without apparent complication Robb Trimble M.D., F.A.C.S. Type of Anesthesia:: General Anesthesiologist: Kevin Toledo
--- NOTE | 2019-05-15 15:29 | EKG12_ITS ---
Test Reason : POST OP Blood Pressure : / mmHG Vent. Rate : 064 BPM Atrial Rate : 064 BPM P-R Int : 148 ms QRS Dur : 078 ms QT Int : 342 ms P-R-T Axes : 072 023 048 degrees QTc Int : 352 ms Normal sinus rhythm Normal ECG Confirmed by DEMETRIUS MARIE, TRICE ([id number]), editor managing newspaper DORIE ORTEGA ([id number]) on 05/19/2019 2:17:43 PM Referred By: Robb Trimble Confirmed By:KHADRA ROMO MD
[2019-05-15] MEDS: 0.9% NaCl Peripheral Flush Adult/Peds IV (18:57)
[2019-05-15] MEDS: Morphine 2 MG/ML Syringe IV (18:57)
[2019-05-15] MEDS: Lactated Ringers 1,000 ML 30 ML IV (19:00)
--- NOTE | 2019-05-15 20:35 | NURSING ---
Patient assisted up into chair at this time.
[2019-05-15] MEDS: Metoprolol Tartrate 25 MG Tablet PO (21:03)
[2019-05-15] MEDS: HYDROcodone Bitartrate/Apap 5/325 Tablet PO (21:03)
--- NOTE | 2019-05-15 22:03 | NURSING ---
patient ambulated in hallway with FURNACE BUILDER this HS, tolerated well.
[2019-05-16] VITALS (7 sets, daily range): BP systolic 102–129; BP diastolic 59–74; PULSE 73–106; RESP 18–20; TEMP 36.9–37.5; O2SAT 94–96
[2019-05-16] MEDS: HYDROcodone Bitartrate/Apap 5/325 Tablet PO ×3 (02:44→12:41)
--- NOTE | 2019-05-16 05:31 | PCM.PN.SRG ---
Patient Problems: Active and Suspected Problems (Last Reviewed 04/17/19 @ 09:59 by Johanna Jaramillo) Breast cancer, left (Acute) Subjective: Pt denies abdominal pain or back pain or nausea Some difficulty noted in his ability to swallow No ongoing evidence for GI bleeding New onset of afib with RVR now rate controlled on IV cardiazem noted - Physical Exam General: Alert Lungs: Clear to auscultation Abdomen: Bowel Sounds Present, Soft, Non Tender Vital Signs Temp Pulse Resp BP Pulse Ox 98.7 F 73 18 102/63 96 05/16/19 02:45 05/16/19 02:45 05/16/19 02:45 05/16/19 02:45 05/16/19 02:45 Oxygen Flow Rate (L/min) 2 Oxygen Delivery Method Nasal Cannula Weight: 204 lb 12.951 oz Body Mass Index (BMI) 37.4 Intake and Output for Last 24 Hours 05/14/19 05/15/19 05/16/19 23:59 23:59 23:59 Intake Total 2816 / 2816 Output Total 135 / 135 Balance 2681 / 2681 Medical Necessity - Tobacco Use Smoking Status: Former smoker Assessment/Plan All Active Problems (Last Reviewed 04/17/19 @ 09:59 by Johanna Jaramillo) Breast cancer, left (Acute) Dyspnea (Acute) Breast cancer (Acute) Depression (Acute) Bladder cancer (Acute) Osteopenia (Acute) Hyperlipidemia (Acute) CAD (coronary artery disease) (Acute) GERD (gastroesophageal reflux disease) (Acute) Abnormal mammogram of left breast (Acute) Guaiac + stool (Acute) Speech therapy consult Check CBC Will consider outpt follow up for EGD and future tertiary referral for extensive HH and complete gastric involvement I am not anticipating further surgical intervention this stay at this time
--- NOTE | 2019-05-16 05:48 | PCM.PN.SRG ---
Patient Problems: Active and Suspected Problems (Last Reviewed 04/17/19 @ 09:59 by Johanna Jarmaillo) Breast cancer, left (Acute) Subjective: Pt making very good progress Sore - Physical Exam Lungs: Clear to auscultation - flaps appear clean and viable, appropriate SIERRA output Vital Signs Temp Pulse Resp BP Pulse Ox 98.7 F 73 18 102/63 96 05/16/19 02:45 05/16/19 02:45 05/16/19 02:45 05/16/19 02:45 05/16/19 02:45 Oxygen Flow Rate (L/min) 2 Oxygen Delivery Method Nasal Cannula Weight: 204 lb 12.951 oz Body Mass Index (BMI) 37.4 Intake and Output for Last 24 Hours 05/14/19 05/15/19 05/16/19 23:59 23:59 23:59 Intake Total 2816 / 2816 Output Total 135 / 135 Balance 2681 / 2681 Medical Necessity - Tobacco Use Smoking Status: Former smoker Assessment/Plan All Active Problems (Last Reviewed 04/17/19 @ 09:59 by Johanna Jaramillo) Breast cancer, left (Acute) Dyspnea (Acute) Breast cancer (Acute) Depression (Acute) Bladder cancer (Acute) Osteopenia (Acute) Hyperlipidemia (Acute) CAD (coronary artery disease) (Acute) GERD (gastroesophageal reflux disease) (Acute) Abnormal mammogram of left breast (Acute) Guaiac + stool (Acute) Dressing change and outpt followup with discharge today
[2019-05-16] MEDS: Metoprolol Tartrate 25 MG Tablet PO (07:44)
[2019-05-16] MEDS: Aspirin E.C. 81 MG Tablet PO (07:45)
[2019-05-16] MEDS: Pantoprazole Sodium 40 MG Tablet PO (07:45)
[2019-05-16] MEDS: Multivitamins,Ther W-Minerals Tablet 1 TABLET PO (07:45)
--- NOTE | 2019-05-16 09:59 | NURSING ---
soft cotton wrap and dressings removed from the chest. incisions to bilateral mastectomy sites are well approximated with steri strips in place. there is some mild ecchymosis noted. minimal drainage noted on old dressings. cleansed each drain site with peroxide and applied new split gauze followed by dry gauze. secured with minimal tape. placed ABD pads along the incisions and reapplied the soft cotton wrap. secured wrap with safety pins. pt tolerated well. educated patient again on emptying of drains. pt aware to record drainage and take form to follow up appt on 05/20/19. reviewed mastectomy teaching booklet with patient as well. pt states that her daughter and granddaughter will be assisting with dressing and drain care. supplies sent with patient as well. had removed O2 prior to dressing changes and pulse ox was checked after dressings were changed. currently 92% on RA. patient denies SOB. Howie RN aware.
[2019-05-16] MEDS: Calcium Carbonate 500 MG Tablet 1000 MG PO (12:23)
== END 2019-05-16 14:10 | disposition home or self-care (01) ==
LOC: SDC 15:42 → MS3 05-16 01:21
PROVIDERS: Admitting Provider Surgery; Family Provider Family Medicine; PCP Family Medicine; Referring Provider Surgery; Visit Provider Surgery
PROC: (CPT 19307; principal; 2019-05-15 10:30)
DX: C50.412 Malignant neoplasm of upper-outer quadrant of left female breast (principal); Z17.0 Estrogen receptor positive status [ER+]; J45.909 Unspecified asthma, uncomplicated; I25.2 Old myocardial infarction; I10 Essential (primary) hypertension; M19.90 Unspecified osteoarthritis, unspecified site; F32.9 Major depressive disorder, single episode, unspecified; I25.10 Atherosclerotic heart disease of native coronary artery without angina pectoris; Z85.3 Personal history of malignant neoplasm of breast; Z79.899 Other long term (current) drug therapy; Z79.82 Long term (current) use of aspirin; Z87.891 Personal history of nicotine dependence; E78.5 Hyperlipidemia, unspecified; F41.9 Anxiety disorder, unspecified; K21.9 Gastro-esophageal reflux disease without esophagitis
CPT/HCPCS: 19303; 38525; 36415; 38792; 71046; 80048; 85027; 88305; 88307; 88309; 88331; 88332; 88341; 88342; 93005; 96374; 99218; A9541; J7120; A4216; G0378; G0379

== ENCOUNTER → 2019-08-11 08:54 | Outpatient (CLI) | payer MEDICARE, OTHER, SELFPAY ==
[2019-06-26 08:35] VITALS: BMI 37.4
[2019-07-17 08:30] VITALS: BMI 37.4
[2019-08-11 09:17] VITALS: PULSE 74; PULSE 79; PULSE 87; PULSE 91; PULSE 92; PULSE 93; PULSE 94; O2SAT 90; O2SAT 92; O2SAT 93; O2SAT 94
--- NOTE | 2019-08-11 13:37 | PCM.PSN.6M ---
PSN 6 Minute Walk Test - 6 Minute Walk Test 6 Minute Walk Test: 6 Minute Walk Test PSN:6-Minute Walk Test Start: 08/11/19 09:17 Freq: Status: Active Protocol: RESP.6MINW Document 08/11/19 09:17 KAMARI (Rec: 08/11/19 09:19 KAMARI [id number]) 6 Minute Walk Test Date Performed 08/11/19 Time Performed 09:00 Height 5 ft 2 in Weight: 194 lb Weight in Pounds 194.[address]: Matt Ca Assistive device used: None Pre-test Oxygen Delivery Method Room Air Pulse Ox (%) 93 Pulse Rate (60-100 beats/min) 74 Dyspnea Aayush Scale (0-10) 0 Exertion Aayush Scale (6-20) 6 1st minute Oxygen Delivery Method Room Air Pulse Ox (%) 92 Pulse Rate (60-100 beats/min) 87 2nd minute Oxygen Delivery Method Room Air Pulse Ox (%) 90 Pulse Rate (60-100 beats/min) 93 3rd minute Oxygen Delivery Method Room Air Pulse Ox (%) 90 Pulse Rate (60-100 beats/min) 93 4th minute Oxygen Delivery Method Room Air Pulse Ox (%) 90 Pulse Rate (60-100 beats/min) 94 5th minute Oxygen Delivery Method Room Air Pulse Ox (%) 90 Pulse Rate (60-100 beats/min) 91 6th minute Oxygen Delivery Method Room Air Pulse Ox (%) 90 Pulse Rate (60-100 beats/min) 92 Dyspnea Aayush Scale (0-10) 1 Exertion Aayush Scale (6-20) 14 Post-test Oxygen Delivery Method Room Air Pulse Ox (%) 94 Pulse Rate (60-100 beats/min) 79 Full Laps Walked 19 Partial Lap, Number of Tiles Walked 29 Total Distance Walked (ft) 1150 - Interpretation Interpretation: The patient ambulated 1150 feet over the course of 6 minutes beginning on room air without assistive devices or breaks. Pretesting oxygen saturation was noted to be 93% on room air. With ambulation, the pilar oxygen saturation was 90%. There was no significant exertional oxygen desaturation. - Recommendations Recommendations: There is no indication for the use of supplemental oxygen at this time.
== END ==
PROVIDERS: Family Provider Family Medicine; PCP Family Medicine; Referring Provider Internal Medicine Critical Care Medicine; Visit Provider Internal Medicine Critical Care Medicine
DX: J44.9 Chronic obstructive pulmonary disease, unspecified (principal)
CPT/HCPCS: 94618

== ENCOUNTER → 2020-03-23 14:45 | Outpatient (CLI) | payer MEDICARE, OTHER, SELFPAY ==
[2019-07-17 08:30] VITALS: BMI 37.4
--- NOTE | 2020-03-23 | FLU_PTH ---
PATIENT: KANE SIGALA LOC: [facility] U#:[id number] AGE/SX: 85/F ROOM: RE03/23/[address]: Dr. Devan Wrae MD : 1940 BED: DIS: SPEC #: [id number] RECD: 03/23/20 14:45 STATUS: DERECK RETerese #: [id number] MONIQUE: 03/23/20 00:[address]: Devan Ware DEPT: CYTOLOGY RECD BY: Jenny Vaz ENTERED: 03/24/20 08:52 SP TYPE: Fluid OTHR DR: Dr. 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 See comment. MATT:cherelle 03/25/20 COMMENT Please make reference to previous specimen ([id number]) bladder tumor, TUR with diagnosis of papillary urothelial carcinoma. CYTOLOGY STUDY Slides are reviewed. CYTOLOGY GROSS Received is 15 ml of yellow cloudy fluid labeled with the patient's name and and designated per the requisition as urine. Submitted for cytology preparation. / rg 03/24/20 TC:5 CPT: 00743
[2020-03-23 16:36] LABS: Cytology, Body Fluid / CSF SEE PATHOLOGY REPORT
== END ==
PROVIDERS: PCP Family Medicine; Visit Provider Urology
DX: C67.3 Malignant neoplasm of anterior wall of bladder (principal)
CPT/HCPCS: 88108; 88305; 88313

== ENCOUNTER → 2020-05-12 08:12 | Outpatient (CLI) | payer MEDICARE, OTHER, SELFPAY ==
[2020-04-28 08:06] VITALS: BMI 37.2
[2020-05-12 08:42] VITALS: PULSE 102; PULSE 104; PULSE 105; PULSE 110; PULSE 85; PULSE 92; O2SAT 88; O2SAT 89; O2SAT 90; O2SAT 91; O2SAT 92; O2SAT 96
--- NOTE | 2020-05-12 13:34 | PCM.PSN.6M ---
PSN 6 Minute Walk Test - 6 Minute Walk Test 6 Minute Walk Test: 6 Minute Walk Test PSN:6-Minute Walk Test Start: 05/12/20 08:42 Freq: Status: Active Protocol: RESP.6MINW Document 05/12/20 08:42 FR (Rec: 05/12/20 08:47 FR [id number]) 6 Minute Walk Test Date Performed 05/12/20 Time Performed 08:30 Height 5 ft 2 in Weight: 88.904 kg Weight in Pounds 196.[address]: Britta Mas Assistive device used: None Pre-test Oxygen Delivery Method Room Air Pulse Ox (%) 92 Pulse Rate (60-100 beats/min) 85 Dyspnea Aayush Scale (0-10) 0 Exertion Aayush Scale (6-20) 6 1st minute Oxygen Delivery Method Room Air Pulse Ox (%) 91 Pulse Rate (60-100 beats/min) 104 H 2nd minute Oxygen Delivery Method Room Air Pulse Ox (%) 89 Pulse Rate (60-100 beats/min) 104 H 3rd minute Oxygen Delivery Method Room Air Pulse Ox (%) 88 Pulse Rate (60-100 beats/min) 110 H 4th minute Oxygen Delivery Method Room Air Pulse Ox (%) 89 Pulse Rate (60-100 beats/min) 105 H Reported Symptoms Increased Work of Breathing 5th minute Oxygen Delivery Method Room Air Pulse Ox (%) 89 Pulse Rate (60-100 beats/min) 102 H Reported Symptoms Increased Work of Breathing 6th minute Oxygen Delivery Method Room Air Pulse Ox (%) 90 Pulse Rate (60-100 beats/min) 102 H Dyspnea Aayush Scale (0-10) 5 Exertion Aayush Scale (6-20) 9 Post-test Oxygen Delivery Method Room Air Pulse Ox (%) 96 Pulse Rate (60-100 beats/min) 92 Full Laps Walked 21 Partial Lap, Number of Tiles Walked 21 Total Distance Walked (ft) 1260 - Interpretation Interpretation: The patient was able to ambulate 1260 feet over the course of 6 minutes on room air with no assistive devices or breaks. The patient did have significant desaturation as low as 88%, but was not placed on supplemental oxygen. Patient did have tachycardia as high as 110 bpm. These findings are consistent with a respiratory limitation exercise tolerance. - Recommendations Recommendations: No supplemental oxygen is indicated at this time, but patient will need to be followed closely given level of desaturation.
== END ==
PROVIDERS: PCP Family Medicine; Referring Provider Nurse Practitioner Acute Care; Visit Provider Nurse Practitioner Acute Care
DX: J44.9 Chronic obstructive pulmonary disease, unspecified (principal)
CPT/HCPCS: 94618

== ENCOUNTER → 2020-08-19 08:00 | Outpatient (CLI) | payer MEDICARE, OTHER, SELFPAY ==
[2020-06-15 05:33] VITALS: BMI 36.9
[2020-08-19 08:15] VITALS: PULSE 106; PULSE 107; PULSE 109; PULSE 117; PULSE 118; PULSE 76; PULSE 95; PULSE 97; O2SAT 89; O2SAT 90; O2SAT 91; O2SAT 92; O2SAT 95; O2SAT 96
--- NOTE | 2020-08-20 17:15 | WT_ITS ---
PSN 6 Minute Walk Test - 6 Minute Walk Test 6 Minute Walk Test: 6 Minute Walk Test PSN:6-Minute Walk Test Start: 08/19/20 08:23 Freq: Status: Active Protocol: RESP.6MINW Document 08/19/20 08:15 HJ (Rec: 08/19/20 08:26 [id number]) 6 Minute Walk Test Date Performed 08/19/20 Time Performed 08:15 Height 5 ft 2 in Weight: 86.183 kg Weight in Pounds 190.[address]: Britta Mas KNOWLEDGE MANAGER FIO2 (% Oxygen) 21 Assistive device used: None Pre-test Oxygen Delivery Method Room Air Pulse Ox (%) 95 Pulse Rate (60-100 beats/min) 76 Dyspnea Aayush Scale (0-10) 0 Exertion Aayush Scale (6-20) 6 1st minute Oxygen Delivery Method Room Air Pulse Ox (%) 92 Pulse Rate (60-100 beats/min) 95 2nd minute Oxygen Delivery Method Room Air Pulse Ox (%) 91 Pulse Rate (60-100 beats/min) 109 H 3rd minute Oxygen Delivery Method Room Air Pulse Ox (%) 90 Pulse Rate (60-100 beats/min) 107 H 4th minute Oxygen Delivery Method Room Air Pulse Ox (%) 89 Pulse Rate (60-100 beats/min) 106 H 5th minute Oxygen Delivery Method Room Air Pulse Ox (%) 90 Pulse Rate (60-100 beats/min) 117 H Number of Rests Taken 1 6th minute Oxygen Delivery Method Room Air Pulse Ox (%) 91 Pulse Rate (60-100 beats/min) 118 H Post-test Oxygen Delivery Method Room Air Pulse Ox (%) 96 Pulse Rate (60-100 beats/min) 97 Dyspnea Aayush Scale (0-10) 2 Exertion Aayush Scale (6-20) 11 Full Laps Walked 20 Partial Lap, Number of Tiles Walked 0 Total Distance Walked (ft) 1180 - Interpretation Interpretation: The patient was able to ambulate 1180 feet over the course of 6 minutes on room air with no assistive devices and one break. The patient did desaturate as low as 89% and had a reflexive tachycardia as high as 118 bpm. These findings are consistent with a respiratory limitation exercise tolerance. - Recommendations Recommendations: No supplemental oxygen is indicated at this time, but patient does need to be followed closely given level of desaturation.
== END ==
PROVIDERS: PCP Family Medicine; Referring Provider Nurse Practitioner Acute Care; Visit Provider Nurse Practitioner Acute Care
DX: J44.9 Chronic obstructive pulmonary disease, unspecified (principal)
CPT/HCPCS: 94618

== ENCOUNTER → 2021-07-05 07:44 | Outpatient (CLI) | payer MEDICARE, OTHER, SELFPAY ==
[2021-07-05] VITALS (15 sets, daily range): BP systolic 110–138; BP diastolic 61–90; PULSE 57–85; RESP 14–23; TEMP 36.4; O2SAT 36–98; BMI 36.0
--- NOTE | 2021-07-05 | ASPIGT_PTH ---
PATIENT: KANE SIGALA LOC: [place] U#:[id number] AGE/SX: 85/F ROOM: RE07/05/[address]: Dr. Chip Nathan DO : 1940 BED: DIS: SPEC #: [id number] RECD: 07/05/21 12:14 STATUS: DERECK RETerese #: [id number] MONIQUE: 07/05/21 00:[address]: Chip Nathan DEPT: SURGICAL PATHOLOGY RECD BY: Devan Romero ENTERED: 07/05/21 12:14 SP TYPE: ASP RAD CHICHO DR: Dr. Oliverio Spencer MD Tissues: Lung, NOS Procedures: FNA Specimen Adequacy Special Stain Group II Surgery Specimen Level IV Imprint (control) HEADER OPERATION: CT-guided left lung biopsy PRE-OP DIAGNOSIS: Left lung mass TISSUE SUBMITTED: Left lung mass MICROSCOPIC DIAGNOSIS Left lung mass, CT-guided core biopsy: Metastatic adenocarcinoma, consistent with clinical impression of breast primary. See comment. SJ:cherelle 07/06/2021 COMMENT The specimen is evaluated at the time of biopsy by Dr. Bernal. Immediate Evaluation = Malignant cells present derived from non-small cell carcinoma. Immunohistochemistry ([id number]) supports the above diagnosis. 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 Case has been reviewed in consultation with Dr. Severino who concurs with the above diagnosis. IDC:AM MICROSCOPIC DESCRIPTION Slides are reviewed. GROSS DESCRIPTION Received in fixative is one container labeled with the patient's name and designated left lung. The specimen consists of multiple elongated fragments of guthrie tissue that in aggregate measure 1 x 0.3 x <0.1 cm. The specimen is totally submitted in one cassette. Two touch imprints are prepared at the time of core biopsy. / AM:cherelle 07/05/2021 TC:0 CPT: 05991, 02933
--- NOTE | 2021-07-05 | IMM_PTH ---
PATIENT: KANE SIGALA LOC: CT U#:[id number] AGE/SX: 85/F ROOM: RE07/05/[address]: Dr. Chip Nathan DO : 1940 BED: DIS: SPEC #: [id number] RECD: 07/05/21 13:27 STATUS: DERECK REQ #: [id number] MONIQUE: 07/05/21 00:[address]: Chip Nathan DEPT: IMMUNOHISTOCHEMISTRY RECD BY: Danielle Montiel ENTERED: 07/05/21 13:29 SP TYPE: IMMUNO OTHR DR: Dr. Oliverio Spencer MD Tissues: Left lung, NOS Procedures: RCC (add) NAPSIN A (add) CK5-6 (add) CK7 (add) CK8 (add) E-CAD (add) HEP PAR (add) HER2 TSERING (add) MAMM (add) SD (add) TTF1 (add) Pankeratin (add) GATA3 (add) P40 (add) ER (initial) PHYSICIAN & INSTITUTION [address] [address] SPECIMEN INFORMATION: Tissue Source: Left lung Clinical Info: Left lung mass, rule out non-small cell carcinoma Specimen Number: [id number] CPT code: 88358, 38809 x15 METHODOLOGY: Deparaffinized sections of prefer/formalin-fixed tissue or PAP/DQ stained slides are incubated with monoclonal/polyclonal antibodies/oligonucleotide probes. Localization is made via biotin free immunoperoxidase method. Appropriate controls are performed and reacted as expected. Results on target cell population are indicated in the following table: RESULTS: ANTIBODY / CLONE RESULT ER (6F11) negative SD (1E2) negative Her-2neu (CB11) negative E-Cad (ECH-6) positive Mammaglobin (31A5) positive, focal & weak GATA3 (L50-823) negative AE1-3 (AE1/AE3/PCK26) positive CK7 (OV-TL12/30) positive CK8 (36ivbbM97) positive CK20 (KS20.8) negative TTF-1 (8G7G3/1) negative Napsin A (Rabbit Polyclonal) negative HepPar (OCh1E5) negative RCC (PN-15) negative CK5-6 (D5 & 1684) negative P40 (BC28) negative These tests were developed and their performance characteristics determined by [facility]. They may not have been cleared or approved by the U.[place]. Food and Drug Administration. The FDA has determined that such clearance or approval is not necessary. The above immunohistochemical/dualISH markers are ordered and reviewed by the Pathologist. INTERPRETATION: Left lung, CT-guided core biopsy: Metastatic adenocarcinoma, consistent with clinical impression of breast primary. This case has been reviewed in consultation with Dr. Severino who concurs with the above diagnosis. SJ:cherelle 07/06/2021
--- NOTE | 2021-07-05 08:10 | CT_ITS ---
PROCEDURE: CT GUIDED CORE NEEDLE BIOPSY OF A left upper lobe LUNG LESION INDICATION: Female, 81 years old. LUNG MASS PHYSICIAN: Dr. DU Lovell CONSENT: Written informed consent was obtained having explained the risks, benefits and alternatives in detail with the patient who accepted the risks and agreed to proceed. Laboratory review and clinical assessment was performed. CONSCIOUS SEDATION PROTOCOL: The Drugs used were: 2 mg Versed, IV., and 50 mcg Fentanyl, IV. The sedation time was: 23 minutes. Conscious sedation was started at 9:04 AM and terminated at 9:27 AM. The conscious sedation protocol was independently monitored. RADIATION DOSAGE (If Supplied By Facility): CTDIvol = ( 12 ) mGy, DLP = ( 364.44 ) mGycm Individualized dose optimization techniques were used for this CT. TECHNIQUE: The patient was placed in the supine position. A noncontrast CT was performed to localize the lesion in the peripheral aspect of the left upper lobe . The skin surface was prepped and draped in a sterile fashion. 1% lidocaine was used for local anesthesia. Using CT guidance, a 20-gauge coaxial biopsy device was advanced to the periphery of the lesion. A total of 4 core specimens were obtained. The specimens were placed in a formalin solution. A post procedure CT demonstrated no adverse sequelae or pneumothorax. The patient tolerated the procedure well without adverse event. A negative biopsy does not exclude malignancy. Further imaging or clinical followup based on patient condition and degree of clinical suspicion for malignancy. Suggest rebiopsy, if biopsy results do not match with clinical scenario. CT/Biopsy/Inj or Needle Placement IMPRESSION: 1. CT directed core needle biopsy of the peripheral nodule in the left upper lobe using CT image guidance with image documentation as described. Pathology results are pending. 2. Conscious Sedation protocol utilized with independent monitoring. Electronically Signed: Newton Crooks MD at 11:22 EDT , Service support ,
[2021-07-05 08:16] LABS: Platelet Count 282 K/mm3 (150-450)
[2021-07-05] MEDS: 0.9% Saline Lock 10 ML Syringe IV (08:20)
[2021-07-05 08:32] LABS: International Normalized Ratio 1.1; Prothrombin Time (Protime)PT. 13.1 SECONDS (11.7-14.9)
[2021-07-05 08:33] LABS: Partial Thromboplast Time 28.4 Seconds (24.1-36.2)
[2021-07-05] MEDS: Midazolam 2 MG/2 ML Syringe IV (09:04)
[2021-07-05] MEDS: fentaNYL 100 MCG/2 ML Ampul IV (09:07)
[2021-07-05] MEDS: Lidocaine 2% (20 ml mdv) 20 ML Vial INFILT (09:15)
--- NOTE | 2021-07-05 09:30 | RAD_ITS ---
STUDY: X-RAY CHEST REASON FOR EXAM: Female, 81 years old. Post bx -- 2 hours post lung biopsy TECHNIQUE: AP inspiration and expiration views. COMPARISON: Comparison is made with prior examination dated 04/25/2019. FINDINGS: The patient is status post left lung biopsy. No evidence of pneumothorax on the immediate post right left lung biopsy radiographs. RAD/Chest Insp/Exp 2 View IMPRESSION: No evidence of pneumothorax on the immediate post left lung biopsy radiographs. Electronically Signed: Newton Crooks MD at 9:50 EDT , Service support ,
--- NOTE | 2021-07-05 10:57 | NURSING ---
Pt placed on 2L NC while resting.
--- NOTE | 2021-07-05 11:40 | RAD_ITS ---
STUDY: X-RAY CHEST REASON FOR EXAM: Female, [address] 2 hours -- immediately post lung biopsy TECHNIQUE: AP inspiration and expiration views. COMPARISON: Comparison is made with prior radiograph done earlier in the day. FINDINGS: 2 hour post left lung biopsy. No evidence of pneumothorax. RAD/Chest Insp/Exp 2 View IMPRESSION: No evidence of pneumothorax on the 2 hour post left lung biopsy radiographs. Electronically Signed: Newton Crooks MD at 13:50 EDT , Service support ,
== END | disposition home or self-care (01) ==
PROVIDERS: PCP Family Medicine; Referring Provider Internal Medicine Hematology & Oncology; Visit Provider Internal Medicine Hematology & Oncology
DX: C50.412 Malignant neoplasm of upper-outer quadrant of left female breast (principal); C78.00 Secondary malignant neoplasm of unspecified lung; C34.91 Malignant neoplasm of unspecified part of right bronchus or lung; Z17.0 Estrogen receptor positive status [ER+]; M25.561 Pain in right knee; R91.8 Other nonspecific abnormal finding of lung field; I25.10 Atherosclerotic heart disease of native coronary artery without angina pectoris; J44.9 Chronic obstructive pulmonary disease, unspecified; R06.00 Dyspnea, unspecified; G89.29 Other chronic pain; Z79.82 Long term (current) use of aspirin
CPT/HCPCS: 32408; 36415; 71046; 77012; 85049; 85610; 85730; 88172; 88305; 88313; 88341; 88342; 99156; J7040